=== PATIENT | male | born 1970 | race Caucasian/White ===

== ENCOUNTER 2019-10-29 07:05 | Outpatient (CLI) | payer BC ==
[2019-10-29 15:35] LABS: ALBUMIN 4.4 g/dL (3.2-5.5); ALBUMIN/GLOBULIN RATIO 1.4 (1.0-2.2); ALKALINE PHOSPHATASE 56 IU/L (42-121); ALT ALANINE AMINOTRANSFERASE 62 IU/L (10-60); AST ASPARTATE AMINOTRANSFERASE 37 IU/L (10-42); BILIRUBIN,TOTAL 1.1 mg/dL (0.2-1.0); BUN - BLOOD UREA NITROGEN 16 mg/dL (6-20); CALCIUM 8.7 mg/dL (8.5-10.3); CARBON DIOXIDE - CO2 26 mmol/L (21-32); CHLORIDE 101 mmol/L (101-111); CHOL/HDL RATIO 4.3 (<5.0); CHOLESTEROL 231 mg/dL; CREATININE 1.1 mg/dL (0.6-1.2); GLUCOSE 89 mg/dL (70-100); HDL CHOLESTEROL 54 mg/dL; LDL CHOLESTEROL,CALCULATED 159 mg/dL; LDL/HDL RATIO 2.9 (<3.6); SODIUM 135 mmol/L (135-145); TOTAL PROTEIN 7.6 g/dL (6.7-8.2); VLDL CHOLESTEROL 18 mg/dL
== END 2019-10-29 07:06 | disposition home or self-care (01) ==
LOC: LAB.S 07:05
PROVIDERS: ATTEND Physician Assistant
DX: R68.82 Decreased libido (principal); Z13.220 Encounter for screening for lipoid disorders; Z13.1 Encounter for screening for diabetes mellitus
CPT/HCPCS: 36415; 80053; 80061; 81599; 83721; 84402; 84403

== ENCOUNTER 2019-11-05 11:12 | Outpatient (CLI) | payer BC ==
[2019-11-05 12:07] VITALS: BP 120/82
--- NOTE | 2019-11-05 12:07 | SLEEP CARE CONSULTATION ---
Information from patient questionnaire entered by Lanie Whitfield. I have reviewed and concur with the information entered by Lanie Whitfield. This document represents the service I personally performed and the decisions made by me, Ann Ma ARNP. History of Present Illness Service Date and Time: 11/05/2019 1112 Reason for Visit: New patient Chief Complaint: reports: Insomnia (can't stay asleep), Unrefreshed sleep, Snoring, Excessive daytime sleepiness (not too bad when distracted), Observed pauses in breathing, Fatigue, Frequent awakenings at night Date of Onset: 20 years, progressed last 3 Usual bedtime: 2029 Time it takes to fall asleep: 20 minutes max Snores at night: Yes Observed to quit breathing while asleep: Yes Sleeps alone due to snoring: No Number of times waking at night: 4 Reasons for waking at night: reports: Snoring, Gasping for air (3-4 times a year). denies: Choking Toss, Turn, or Twitch while sleeping: Yes Recalls having dreams: Yes Usually gets out of bed at: 0430 Feels refreshed in the morning: No Morning headache: No Sleepy or fatigued during the day: Yes Ever fallen asleep while driving: No Takes day naps: No Dreams during day naps: Yes Prior sleep studies: No Additional HPI information: I had the pleasure of seeing MARILEE PAGE today regarding the possibility of him having a sleep disorder. His current complaints are he snores very loud, he doesn't sleep well and awakens frequently at night. He feels it has been getting over this last year. He is exhausted by 7 PM and his sex drive has reduced dramatically. He has a history of anxiety, impotence and an acute attack of arrhythmia about 4 years ago. - Parasomnia Symptoms Ever been unable to move upon waking from sleep: No Walks in sleep: No Talks in sleep: No Ever acted out dreams in sleep: No Ever felt weak in the knees when startled or emotional: No Bothered by creepy, crawly, restless sensations in legs: No Problems with memory or concentration: Yes (both) Subjective Initial [place] Sleepiness Scale score: 6 Past Medical History Past Medical History: reports: Arrythmia (once time thing about 4 years ago, acute arrhythmia attack, no reoccurrance), Anxiety, Impotence, Other (severe heartburn taking omeprazole). 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 Patient is Single and lives in [place]. Have you smoked in the past 12 months: No Alcohol use: Yes Alcohol amount and frequency: 2 drinks, 5x/week Caffeine use: Yes Caffeine amount and frequency: 1 cup coffee/day Family History Family history of sleep disordered breathing: Yes Family Hx Sleep Apnea: Sibling: Snoring Allergies and Home Medications Drug allergies reviewed: Yes (NKDA) Home medication list reviewed: Yes (omeprazole) Review of Systems Weight gain over past 5 years: 20 Cardiovascular: reports: irregular heart rate or pulse. denies: high blood pressure, palpitations, chest pain, leg or foot swelling Respiratory: denies: shortness of breath Gastrointestinal: reports: heartburn. denies: difficulty swallowing Urinary: reports: impotence Neurological: denies: headaches, seizure, head trauma, speech dysfunction, gait or balance problems Psychiatric: reports: anxiety. denies: Attention Deficit Hyperactivity, depression, mood disorder, claustrophobia Ear/Nose/Throat: reports: wisdom teeth removed. denies: nasal congestion, sinus problems, nose bleeds, dry mouth/throat, injury to nose, tonsillectomy Endocrine: reports: sluggishness. denies: thyroid disease Musculoskeletal: reports: muscle pain or cramping Immunologic: denies: allergies to food or environment Physical Exam Blood Pressure: 120/82 Cuff size: long Heart Rate: 55 O2 Saturation: 98 Height: 5 ft 9 in Weight: 200 lb Body Mass Index: 29.5 BMI Classification: Overweight Neck circumference: 16.75 (inches) HEENT: No craniofacial malformation Nostrils: patent to airflow Turbinates: swollen Septum: midline Mouth and throat: narrow oropharynx Soft palate: normal Hard palate: normal Uvula: normal Uvula visualization: 50% Mallampati Class II Tongue: normal in size Tonsils: 1+ Chin and jaw: normal size and position Neck: normal w/o lymphadenopathy or thyromegaly Heart: regular rate and rhythm Lungs: clear bilaterally Impression and Plan 1. Suspected Obstructive Sleep Apnea-Hypopnea Syndrome, as suggested by a history of loud and irregular snoring, observed cessation of breath while asleep, gasping or choking in sleep, frequent awakening during the night, unrefreshed sleep, cognitive impairment, and excessive daytime sleepiness. I reviewed with patient that a narrow oropharynx and obesity are common predisposing factors for obstructive sleep apnea-hypopnea syndrome. I recommend proceeding to polysomnography to confirm the diagnosis and to assess severity. If the patient has significant sleep disordered breathing, a manual CPAP titration study will also be performed to find the optimal treatment pressure. I informed the patient of what the sleep studies involve and after some discussion, obtained agreement to proceed. The pathophysiology of obstructive sleep apnea-hypopnea syndrome was discussed with the patient and health risks of cardiovascular and cerebrovascular disease if not treated. AAS brochure for obstructive sleep apnea-hypopnea syndrome given and reviewed. Risks of drowsy driving discussed in detail and patient advised to avoid long distance driving and to pullman car repairer at the first sign of drowsiness. Patient agreed to plan. * Schedule polysomnography +- manual CPAP titration study. * Avoid long distance driving or driving when feeling sleepy. * Avoid alcohol, sedative and muscle relaxant around bedtime. * Attempt to lose weight. * Review instructions provided by trained office staff on how to prepare for the sleep study. * Return for follow-up after sleep study completed. Visit Type: In Office Time Spent with Patient (minutes): 30 Provider Statement: I spent 100% of the Face to Face Visit with the patient with greater than 50% spent counseling the patient and coordination of care.
== END 2019-11-05 11:13 | disposition home or self-care (01) ==
LOC: SC 11:12
PROVIDERS: ATTEND Nurse Practitioner Family
DX: R06.83 Snoring (principal); G47.8 Other sleep disorders; G47.10 Hypersomnia, unspecified; R06.81 Apnea, not elsewhere classified; E66.3 Overweight; Z68.29 Body mass index [BMI] 29.0-29.9, adult; I49.9 Cardiac arrhythmia, unspecified
CPT/HCPCS: 99204; 99212

== ENCOUNTER 2019-12-23 20:30 | Outpatient (CLI) | payer BC | END 2019-12-23 20:31 | disposition home or self-care (01) | LOC: SC 20:30 | PROVIDERS: ATTEND Nurse Practitioner Family | DX: G47.33 Obstructive sleep apnea (adult) (pediatric) (principal); G47.61 Periodic limb movement disorder; E66.3 Overweight; Z68.29 Body mass index [BMI] 29.0-29.9, adult | CPT/HCPCS: 95810 ==

== ENCOUNTER 2019-12-29 16:14 | Outpatient (CLI) | payer BC ==
--- NOTE | 2019-12-29 16:27 | SLEEP CARE CONSULTATION ---
Information from patient questionnaire entered by Samson Guzman. I have reviewed and concur with the information entered by Samson Guzman. This document represents the service I personally performed and the decisions made by , Ann Ma ARNP. History of Present Illness Service Date and Time: 12/29/2019 1620 Initial [place] Sleepiness Scale score: 6 (in 2020) Current [place] Sleepiness Scale score: 5 Additional HPI information: MARILEE PAGE returns via Telehealth video for follow up and results of the recently performed polysomnography. I explained the pathophysiology behind obstructive sleep apnea. We then spent quite a bit of time discussing different treatment options. For mild obstructive sleep apnea, surgery and oral appliance are alternatives to nasal CPAP therapy but in moderate or severe cases, nasal CPAP is the most effective and reliable treatment. Because apnea is primarily in supine position, then positional management therapy could be effective. Methods discussed such as positioning with pillows, using a T-shirt with tennis balls in the back, and shown commercial products that have a pillow format on back to prevent supine sleep. I reviewed the impact of weight changes on sleep apnea and strongly recommended losing weight. Sleep Study - Results Type of Sleep Study: Polysomnography Prior sleep studies: No Polysomnography/Home Sleep Study results: IMPRESSION: The quality of the study is good. The patient had slightly reduced sleep efficiency due to clay mixer awakening. The sleep architecture was abnormal for sleep fragmentation and reduced amount of time spent in slow wave sleep (N3). Respiratory monitoring showed mild obstructive sleep apnea-hypopnea (AHI = 10.1) associated with frequent arousals, oxyhemoglobin desaturation and mild hypoxia (vira oxygen saturation of 80%). The respiratory events occurred almost exclusively during supine sleep (supine AHI = 33.4; non-supine = 2.65). Snore was loud in intensity. There was mild periodic leg movement of sleep contributing to the sleep fragmentation.. Cardiac rhythm was normal sinus rhythm without significant arrhythmia with occasional premature atrial contractions in bigeminy. No abnormal behavior (parasomnia) observed during the night. Allergies and Home Medications Drug allergies reviewed: Yes (no changes) Home medication list reviewed: Yes (no changes) Review of Systems Review of systems same as previous: Yes (no changes) Physical Exam Vital signs obtained and entered by: Telehealth visit to reduce exposure during Covid pandemic Height: 5 ft 9 in Impression and Plan 1. Obstructive Sleep Apnea-Hypopnea Syndrome, mild with AHI 10.1, with lowest oxygen saturation of 80%. Obviously this is the cause of the patients symptoms of unrefreshed sleep, and excessive daytime sleepiness. After discussing different treatment for his mild YOUSUF he would like to try positional managment therapy. Since patients apnea is primarily in supine position, patient advised to try positional therapy and agreed with plan. He is also advised to lose weight as this will reduce snoring and apnea. An oral appliance can also be used for snoring but often is not covered by insurance. Follow up is scheduled for one month to check effectiveness and if further evaluation indicated such a repeat study in supine position only to see if additional treatment indicated. * Positional management therapy treatment. * Attempt to lose weight. * Avoid supine sleep * The patient is again cautioned about driving until sleepiness completely resolves. * Return in 2 months for evaluation of therapy. I will assess response to therapy and compliance at that time. Counseling Topics: Sleeping position Visit Type: Telehealth Video Patient Location: Car Location of Provider: Office Patient agrees and consents to this telehealth visit type: Yes Patient agrees to have their insurance billed: Yes Time Spent with Patient (minutes): 15 Provider Statement: I spent 100% of the Telehealth Video Call with the patient with greater than 50% spent counseling the patient and coordination of care.
== END 2019-12-29 16:15 | disposition home or self-care (01) ==
LOC: SC 16:14
PROVIDERS: ATTEND Nurse Practitioner Family
DX: G47.33 Obstructive sleep apnea (adult) (pediatric) (principal)

== ENCOUNTER 2020-02-24 14:41 | Outpatient (CLI) | payer BC ==
--- NOTE | 2020-02-24 14:36 | SLEEP CARE CONSULTATION ---
Information from patient questionnaire entered by Samson Guzman. I have reviewed and concur with the information entered by Samson Guzman. This document represents the service I personally performed and the decisions made by , Ann Ma ARNP. History of Present Illness Service Date and Time: 02/24/2020 1420 Previous diagnosis: Mild, Obstructive Sleep Apnea-Hypopnea Syndrome AHI: 10.1 Reason for follow up: other (2-month followup - positional therapy) Prior sleep studies: No Year and Where: 2019 [facility] Type of Sleep Study: Polysomnography HPI additional information: MARILEE PAGE was diagnosed to have mild, AHI 10.1, obstructive sleep apnea- hypopnea syndrome and returns via Telehealth visit today for positional therapy first follow-up. He is starting on his left side with the edge of bed behind me. This forces him to stay off his back. He states intermittently he may roll on the back and he will snore more. He feels like he is waking up groggier in the mind, but he also is waking up with more energy and feeling rested on a more regular basis. He is very happy with the positional therapy at this time. Sleep Study - Results Type of Sleep Study: Polysomnography Prior sleep studies: No Subjective Initial [place] Sleepiness Scale score: 6 (in 2019) Current [place] Sleepiness Scale score: 3 Allergies and Home Medications Home medication list reviewed: Yes (no changes) Review of Systems Review of systems same as previous: Yes (no changes) Physical Exam Vital signs obtained and entered by: Telehealth visit to limit exposure during Covid pandemic Height: 5 ft 9 in Impression and Plan 1. Obstructive Sleep Apnea-Hypopnea Syndrome, mild. On positional therapy, the patient has better sleep quality and is more rested overall. He has been having good success with staying off of his back most of the time. He does have a device to wear to remind him about rolling over but has found that sleeping on left side on edge of the bed is really working well for him. He feels that he has more energy and is waking up feeling rested in the morning the majority of the time now. His [place] scale was 3, down from the initial 6, when measured today. Patient's apnea severity and rationale for treatment to reduce apnea, improve sleep quality and reduce cardiovascular and cerebrovascular events was reviewed. * Continue positional therapy * Call this office if any problems staying on his back or increase in snoring when on his side * Return for follow up in 6 months, or sooner if concerns arise Visit Type: Telehealth Video Video Type: Doximity Patient Location: Car Location of Provider: Office Patient agrees and consents to this telehealth visit type: Yes Patient agrees to have their insurance billed: Yes Time Spent with Patient (minutes): 16 Provider Statement: I spent 100% of the Telehealth Video Call with the patient with greater than 50% spent counseling the patient and coordination of care.
== END 2020-02-24 14:42 | disposition home or self-care (01) ==
LOC: SC 14:41
PROVIDERS: ATTEND Nurse Practitioner Family
DX: G47.33 Obstructive sleep apnea (adult) (pediatric) (principal)

== ENCOUNTER → 2020-03-06 | Outpatient (CLI) | payer BC ==
--- NOTE | 2020-03-06 11:13 | XRAY Report ---
PROCEDURE: Chest 2 View X-Ray INDICATIONS: RIGHT SIDED CHEST WALL PAIN TECHNIQUE: 2 view(s) of the chest. COMPARISON: None. FINDINGS: Surgical changes and devices: None. Lungs and pleura: No pleural effusions or pneumothorax. Lungs are clear. Mediastinum: Mediastinal contours are normal. Heart size is normal. Bones and chest wall: No suspicious bony abnormalities. Soft tissues appear unremarkable. IMPRESSION: No acute cardiopulmonary disease process. Reviewed by: Aminta Villa MD, PhD on 03/06/2020 11:12 AM [facility] Approved by: Aminta Villa MD, PhD on 03/06/2020 11:12 AM [facility] Station ID: [id number]
== END ==
LOC: DI.S 10:14
PROVIDERS: ATTEND Physician Assistant
DX: R07.89 Other chest pain (principal)

== ENCOUNTER 2020-11-28 10:24 | Outpatient (CLI) | payer BC ==
--- NOTE | 2020-11-28 12:08 | XRAY Report ---
PROCEDURE: Knee 3 View RT INDICATIONS: RT JOINT PAIN TECHNIQUE: 3 views of the right knee(s) were acquired. COMPARISON: None. FINDINGS: Bones: No fractures or dislocations. No suspicious bony lesions. Right knee ACL graft repair phillips e can be seen. The joint spaces are relatively well-preserved. Mild degenerative changes are seen, wi th femoral tibial joint space irregularity. Soft tissues: No joint effusion. No suspicious soft tissue calcifications. IMPRESSION: Mild degenerative changes. Prior ACL graft repair. If there is strong clinical concern for internal derangement of the knee, please consider a dedicated , scheduled knee MRI for further evaluation (assuming that there is no contraindication). Reviewed by: Alvaro Barraza MD on 11/28/2020 11:06 AM [facility] Approved by: Alvaro Barraza MD on 11/28/2020 11:06 AM [facility] Station ID: [id number]
== END 2020-11-28 10:25 | disposition home or self-care (01) ==
LOC: DI.S 10:24
PROVIDERS: ATTEND Registered Nurse
DX: M17.11 Unilateral primary osteoarthritis, right knee (principal)

== ENCOUNTER 2023-10-13 12:41 | Outpatient (CLI) | payer BC ==
--- NOTE | 2023-10-15 22:52 | XRAY Report ---
PROCEDURE: Foot 3+V LT INDICATIONS: LT FOOT PAIN TECHNIQUE: 3 views of the foot were acquired. COMPARISON: None. FINDINGS: Bones: No fractures or dislocations. No suspicious bony lesions. Mild hallux valgus alignment and medial bunion. Well-corticated osseous density adjacent to the superior aspect of navicular. Soft tissues: No tibiotalar joint effusion. Achilles tendon appears normal. IMPRESSION: Mild hallux valgus alignment and medial bunion. Chronic appearing osseous density adjacent to the superior aspect of the navicular likely remote inju ry versus bony ossicle. Reviewed by: ASYA Brewster on 10/15/2023 10:50 PM PDT Approved by: Deena Ray MD on 10/15/2023 10:50 PM PDT Station ID: [id number]
== END 2023-10-13 12:42 | disposition home or self-care (01) ==
LOC: DI.S 12:41
PROVIDERS: ATTEND Registered Nurse
DX: M20.12 Hallux valgus (acquired), left foot (principal); M21.612 Bunion of left foot